=== PATIENT | female | born 1955 | race Caucasian/White ===

== ENCOUNTER 2019-04-01 09:55 | Outpatient (CLI) | payer OTHER ==
--- NOTE | 2019-04-01 10:21 | RAD ---
TWO VIEWS LUMBAR SPINE: HISTORY: Disability evaluation. COMPARISON: None. FINDINGS: Five lumbar-type vertebrae. Lumbar spine vertebral body height is maintained. There is no fracture. M oderate change at L4-L5 and L5-S1. There is loss of disc space height and osteophyte formation. Spondylolisthesis: 3.8 mm of anterolisthesis of L4 upon L5. IMPRESSION: Grade 1 anterolisthesis of L4 upon L5. Moderate degenerative change at L4-L5 and L5-S1. Transcribed Date/Time: 04/01/2019 11:09 AM
== END 2019-04-01 09:56 | disposition home or self-care (01) ==
LOC: BICRAD 09:55
PROVIDERS: ATTEND Internal Medicine
DX: Z02.71 Encounter for disability determination (principal); M47.816 Spondylosis without myelopathy or radiculopathy, lumbar region; M47.817 Spondylosis without myelopathy or radiculopathy, lumbosacral region; M43.16 Spondylolisthesis, lumbar region
CPT/HCPCS: 72100